=== PATIENT | female | born 1985 | race Caucasian/White ===

== ENCOUNTER 2016-10-09 06:28 | Emergency (ER) | payer OTHER ==
[~2016-10-09] VITALS: Ht 154.9 cm; Wt 100.0 kg
[2016-10-09 06:33] VITALS: BP 126/87; PULSE 91; RESP 24; O2SAT 96
--- NOTE | 2016-10-09 06:37 | ED.REPORT ---
HPI-General Illness Date of Service Oct 09, 2016 ED Provider: Martell Verma DO The patient is a otherwise healthy 30 year old female who presents to the ED due to cold symptoms for the past month. Associated symptoms include cough, diaphoresis, diarrhea, nasal congestion, rib pain with coughing and headache. 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 She does not have a history of sinus infection. Nursing Notes Stated Complaint: COUGH/ABDOMINAL PAIN Chief Complaint: Respiratory Complaints Nursing Notes Reviewed: Yes Allergies: Coded Allergies: Penicillins (Verified Allergy, Unknown, HIVES, 10/09/16) General Time Seen by MD: 06:32 Chief Complaint Other (nasal congestion) Hx Obtained From: Patient Sudden in Onset?: Yes Onset Occurred: More than a week ago... (1 month) Symptom Duration: Since onset Location: : Nose Quality: Heaviness Severity: Current: Mild Recent Healthcare: No recent doctor visit, No recent hospitalization Similar Sx Previous: No Past Medical History Past Medical History denies Past Surgical History Reports: , Hysterectomy Smoking History Unknown if Ever Smoker Social History Other Social History: Local resident Ambulatory Status Independent Review of Systems Full Review of Systems Ears / Nose / Throat: Reports: Nasal congestion Respiratory: Reports: Non-productive cough GI: Reports: Diarrhea Skin: Reports Diaphoresis Neurologic: Reports: Headache Complete sys rev & neg: except as marked. Physical Exam Vital Signs Vital Signs Date Time Temp Pulse Resp B/P Pulse Ox O2 Delivery O2 Flow Rate FiO2 10/09/16 06:33 36.3 91 24 126/87 96 Room Air Initial VS: Reviewed Respiratory: Breath sounds normal, Clear to auscultation, No respiratory distress Cardiovascular: Regular rate & rhythm, Heart sounds normal, Intact distal pulses Abdomen / GI: Soft, Non-tender, No guarding, No rebound, No distention Extremities: Vascular intact, Neuro intact, No swelling, No tenderness Skin: Warm, Dry, No cyanosis Neurologic: Alert, Oriented, Nonfocal Psychiatric: Mood/affect normal, Behavior normal, Normal thought content General/Constitutional: Awake, Alert, No acute distress, Cooperative, Not toxic appearing Head / Eyes: Atraumatic, Normocephalic, PERRL, EOMI maxillary and frontal sinus tenderness w/ palpation ENT: Pharynx NL, Tympanic membs NL tonsils are 2+ non erythematous Re-Eval/Medical Decision Counseled Regarding: Diagnosis, Lab results, Need for follow-up, When/why to return to ED Discharge & Departure Primary Impression: Sinus infection Sinusitis location: unspecified location Chronicity: unspecified Qualified Code: J32.9 - Chronic sinusitis, unspecified Disposition: Home Discharge Condition All VS Reviewed: Yes Condition: Stable Additional Instructions: You most likely have a sinus infection. I am sending you home with a non- Penicillin antibiotic, Azithromycin. Take the medication with food to avoid stomach irritation. It may cause mild loose stools. Return to the Emergency Department for any new or worsening symptoms. Follow up with your primary care physician as needed. [facility] Referrals: [facility] (PCP) Scribe Attestation Portion of this note were transcribed by Delfina Gates. I, Dr. Verma, personally performed the history, physical exam, and medical decision-making: I reviewed and confirmed the accuracy for the information in the transcribed note. Signed by: clay Lou, 10/09/16 0800 Martell Verma DO Oct 09, 2016 06:37 Delfina Gates Oct 09, 2016 06:58
[2016-10-09] MEDS ORDERED: ZIT250 PO (07:34)
== END 2016-10-09 08:03 | disposition home or self-care (01) ==
LOC: SED 06:28
DX: J32.9 Chronic sinusitis, unspecified (principal); R19.7 Diarrhea, unspecified; R61 Generalized hyperhidrosis; R07.81 Pleurodynia; Z88.0 Allergy status to penicillin

== ENCOUNTER 2016-10-18 18:23 | Emergency (ER) | payer OTHER ==
[~2016-10-18] VITALS: Ht 156.2 cm; Wt 100.0 kg
[~2016-10-18 18:23] MED LIST: ZIT250 PO
[2016-10-18 18:39] VITALS: BP 121/67; PULSE 90; RESP 16; O2SAT 97
--- NOTE | 2016-10-18 19:49 | ED.REPORT ---
HPI-URI / Cough / Cold Date of Service Oct 18, 2016 ED Provider: Juan J Suarez MD The patient is a 30 year old female who presents to the ED due to a persistent sinus infection for the past month, since she moved here from [place]. Associated symptoms include chills, nasal congestion, and sinus pressure. She saw at the ED on 10/09/16 for similar symptoms at which time she received a course of azithromycin. She has an appointment at [facility] in a month. She has been using NyQuil frequently with no improvement. She denies fever. Nursing Notes Stated Complaint: SINUS PROBLEMS Chief Complaint: General Complaint Nursing Notes Reviewed: Yes Allergies: Coded Allergies: Penicillins (Verified Allergy, Unknown, HIVES, 10/18/16) Scheduled Doxycycline Hyclate DR (Doxycycline Hyclate DR) 100 Mg Tablet.dr 100 MG PO BID Triamcinolone Acetonide (Nasacort) 10.8 Ml [place] 10.8 ML NS DAILY General Time Seen by MD: 19:34 Chief Complaint Other (sinus infection) Hx Obtained From: Patient Arrived By: Walk-in Onset Occurred: More than a week ago... (1 month) Symptom Duration: Since onset Location: : Sinus frontal left: Sinus frontal right Quality: Painful Severity: Current: Mild Recent Healthcare: Recent doctor visit Similar Sx Previous: Yes Past Medical History Past Medical History denies Past Surgical History Reports: , Hysterectomy Smoking History Current Every Day Smoker, Unknown if Ever Smoker Social History Other Social History: Local resident Ambulatory Status Independent Review of Systems Review of Systems Note: sinus pressure Constitutional: Reports: Chills, Denies: Fever Ears / Nose / Throat: Reports: Nasal congestion Complete sys rev & neg: except as marked. Physical Exam Initial Vital Signs Vital Signs (First) Date Time Temp Pulse Resp B/P Pulse Ox O2 Delivery O2 Flow Rate FiO2 10/18/16 18:39 36.4 90 16 121/67 97 Room Air Initial VS: Reviewed Skin: Warm, Dry Psychiatric: Mood/affect normal General/Constitutional: Awake, Alert, Cooperative ENT: Mucous membranes moist, Pharynx NL Respiratory / Chest: Atraumatic, No respiratory distress Head / Eyes: Atraumatic, Normocephalic tenderness to facial percussion on right forehead Neck: Atraumatic, Supple Lymphatic: No cervical adenopathy Re-Eval/Medical Decision Counseled Regarding: Diagnosis, Lab results, Need for follow-up, When/why to return to ED Discharge & Departure Impression: Primary Impression: Sinusitis, acute frontal Recurrence: recurrent Qualified Code: J01.11 - Acute recurrent frontal sinusitis Disposition: Home Discharge Condition All VS Reviewed: Yes Condition: Stable Patient Instructions: Sinusitis (ED) Additional Instructions: History and exam are suggestive of a recurrent sinus infection. We are starting antibiotics today, doxycycline twice daily for 2 weeks. We will give a dose in the ED today to start. Use a nasal steroid also. Follow up with resident's clinic as planned and try ot stop smoking. Return to ED for fevers, or severe headache. Referrals: [facility] Res[facility] Scribe Attestation Portion of this note were transcribed by Delfina Gates. I, Dr. Suarez, personally performed the history, physical exam, and medical decision-making: I reviewed and confirmed the accuracy for the information in the transcribed note. Signed by: clay Lou, 10/18/16 2100 copies to: [facility] Juan J Suarez MD Oct 18, 2016 19:49 Delfina Gates Oct 18, 2016 19:51
[2016-10-18] MEDS ORDERED: DOXY-226 PO (19:52)
[2016-10-18] MEDS ORDERED: TRIA10.8 NS (19:52)
[2016-10-18 20:04] VITALS: BP 122/70; PULSE 89; RESP 17; O2SAT 98
== END 2016-10-18 20:05 | disposition home or self-care (01) ==
LOC: SED 18:23
DX: J01.11 Acute recurrent frontal sinusitis (principal); F17.200 Nicotine dependence, unspecified, uncomplicated; Z88.0 Allergy status to penicillin